=== PATIENT | male | born 1960 | race Caucasian/White ===

== ENCOUNTER 2017-04-16 08:15 | Emergency (ER) | payer OTHER ==
[~2017-04-16] VITALS: Ht 175.3 cm; Wt 110.0 kg
[~2017-04-16 08:15] MED LIST: ASPI325T PO; ATOR40TA PO; LOTR5CAP2 PO
[2017-04-16 08:18] VITALS: BP 168/85; PULSE 84; RESP 18; TEMP 98.4; O2SAT 99
--- NOTE | 2017-04-16 08:45 | PD ---
HPI Chief Complaint: Pain: Acute or Chronic Time Seen by Provider: 08:30 Travel History International Travel<30 days: No Contact w/Intl Traveler<30days: No Traveled to known affect area: No History of Present Illness HPI 56 year old male with PMH of HTN presents to ED with a 4 day HX of non traumatic left foot pain. He can not recall a specific injury. He reports the lateral portion of the foot has become increasingly more painful & caused him to fall last night when he attempted to bear weight on the foot. He denies LOC, small abrasion to forehead. Patient denies headache, fever, chills. PFSH Past Medical History Depression: Yes High Cholesterol: Yes Diabetes: No Diminished Hearing: No Genitourinary: No Hypertension: Yes Musculoskeletal: Yes Neurologic: Yes Psychiatric: Yes Respiratory: Yes Sleep Apnea: Yes Past Surgical History Joint Replacement: Yes (lt knee) Oral Surgery: Yes (TONSILECTOMY) Other Surgery: Yes Social History Alcohol Use: Yes Tobacco Use: Yes (1 PPD) Substance Use: No Allergies-Medications (Allergen,Severity, Reaction): Coded Allergies: No Known Allergies (Unverified , 04/16/17) Reported Meds & Prescriptions Reported Meds & Active Scripts Active Reported Ibuprofen 800 Mg Tab 800 Mg PO BID PRN Lotrel (Amlodipine-Benazepril) 5-10 Mg Cap 1 Cap PO DAILY Celexa (Citalopram Hydrobromide) 20 Mg Tab 20 Mg PO HS Lipitor (Atorvastatin Calcium) 20 Mg Tab 20 Mg PO DAILY Review of Systems Except as stated in HPI: all other systems reviewed are Neg Musculoskeletal: Positive: Pain (left foot.) Physical Exam Narrative GENERAL: well appearing, well nourished male. SKIN: Warm and dry. Small abrasion of forehead. HEAD: Normocephalic. EYES: Pupils equal and round. No scleral icterus. No injection or drainage. ENT: No nasal bleeding or discharge. Mucous membranes pink and moist. NECK: Trachea midline. No JVD. CARDIOVASCULAR: Regular rate and rhythm. RESPIRATORY: No accessory muscle use. Clear to auscultation. Breath sounds equal bilaterally. GASTROINTESTINAL: Abdomen soft, non-tender, nondistended. Hepatic and splenic margins not palpable. MUSCULOSKELETAL: Extremities without clubbing, cyanosis, or edema. No obvious deformities. Pain and tenderness over the left fifth metatarsal. No erythema or ecchymosis. No obvious deformity. Brisk cap refill. Pulses present. NEUROLOGICAL: Awake and alert. No obvious cranial nerve deficits. Motor grossly within normal limits. Five out of 5 muscle strength in the arms and legs. Normal speech. PSYCHIATRIC: Appropriate mood and affect; insight and judgment normal. Data Data Last Documented VS Vital Signs Date Time Temp Pulse Resp B/P Pulse Ox O2 Delivery O2 Flow Rate FiO2 04/16/17 08:18 98.4 84 18 168/85 99 Orders Foot, Complete ([id number]) (04/16/17 ) [facility] Medical Decision Making Medical Screen Exam Complete: Yes Emergency Medical Condition: No Differential Diagnosis Vasquez fracture versus midfoot sprain versus other Narrative Course 56-year-old male presents with a four-day history of nontraumatic left foot pain. He had mechanical fall last night after attempting to bear weight on the left foot causing a small abrasion to his forehead no LOC. X-ray pending. xray L foot: Subtle Nondisplaced transverse fracture of the base of the fifth metatarsal. Left lower extremity splinted in a short posterior splint by microbiology technician. Post- application the extremity is neurovascular intact, brisk cap refill, no compartment syndrome. Patient instructed to ice and elevate the leg. nonweightbearing with crutches. Make an appointment for follow-up and casting with orthopedics. Diagnosis Primary Impression: Metatarsal bone fracture Qualified Code: S92.355A - Closed nondisplaced fracture of fifth metatarsal bone of left foot, initial encounter Additional Impression: Abrasion head Referrals: Orthopedist Patient Instructions: Foot Fracture in Adults (ED), General Instructions Departure Forms: Tests/Procedures, Work Release Special Instructions: needs to be cleared by ortho or primary for work clearance. Non weight bearing until then. Disposition: 01 DISCHARGE HOME Condition: Stable Mel Vincent April 16, 2017 08:45
[2017-04-16] MEDS ORDERED: CELE20TA PO (09:02)
[2017-04-16] MEDS ORDERED: LIPI20TA PO (09:02)
[2017-04-16] MEDS ORDERED: IBUP800T23 PO (09:02)
[2017-04-16] MEDS ORDERED: LOTR5CAP2 PO (09:02)
--- NOTE | 2017-04-16 09:17 | RADRPT ---
EXAM DATE/TIME: 04/16/2017 08:57 [facility] COMPARISON: No previous studies available for comparison. INDICATIONS : Pain with swelling 5th metatarsal, no known injury. MEDICAL HISTORY : Hammer toe 2nd digit SURGICAL HISTORY : Hammer toe repair 2nd digit. ENCOUNTER: Initial ACUITY: 4 - 6 days PAIN SCORE: 10/10 LOCATION: Left foot. FINDINGS: AP, lateral and oblique views of the left foot were obtained and demonstrate a subtle nondisplaced tr ansverse fracture through the fifth metatarsal base. There is no distraction or angulation. There is mild overlying soft tissue swelling. There is a surgical screw in the second metatarsal head. There i s mild osteopenia. There are minimal degenerative changes. CONCLUSION: Nondisplaced fracture through the fifth metatarsal. Trenton Priest MD on April 16, 2017 at 9:15 Board Certified Radiologist. This report was verified electronically.
[2017-04-16] MEDS ORDERED: HYDR-3533 PO (09:59)
[2017-04-16] MEDS ORDERED: ACETAMINOPHEN/HYDROcodone 325 MG/5 MG TAB PO ONE (10:00)
== END 2017-04-16 11:14 | disposition home or self-care (01) ==
LOC: NEPK 08:15
DX: S92.355A Nondisplaced fracture of fifth metatarsal bone, left foot, initial encounter for closed fracture (principal); S00.81XA Abrasion of other part of head, initial encounter; E78.00 Pure hypercholesterolemia, unspecified; I10 Essential (primary) hypertension; G47.30 Sleep apnea, unspecified; F17.200 Nicotine dependence, unspecified, uncomplicated; W18.39XA Other fall on same level, initial encounter; Z87.39 Personal history of other diseases of the musculoskeletal system and connective tissue; Z86.59 Personal history of other mental and behavioral disorders; Z86.69 Personal history of other diseases of the nervous system and sense organs; Z87.09 Personal history of other diseases of the respiratory system
CPT/HCPCS: 29515; 73630; 99283; E0113